=== PATIENT | female | born 1950 | race Caucasian/White ===

== ENCOUNTER → 2016-04-15 | Outpatient (CLI) | payer OTHER ==
[~2016-04-15] MED LIST: LIPITOR40 MG PO; LOPRESSOR50 MG PO; PROAMATINE 2.52.5 MG PO
== END ==
LOC: KOH-I 10:01
DX: G89.4 Chronic pain syndrome (principal); M54.41 Lumbago with sciatica, right side; M54.42 Lumbago with sciatica, left side; M51.37 Other intervertebral disc degeneration, lumbosacral region
CPT/HCPCS: 72131

== ENCOUNTER → 2016-07-01 | Outpatient (CLI) | payer OTHER | LOC: HEART 5 05-28 10:00 | DX: R01.1 Cardiac murmur, unspecified (principal); I31.3 Pericardial effusion (noninflammatory); I51.7 Cardiomegaly; I27.2 Other secondary pulmonary hypertension; I37.1 Nonrheumatic pulmonary valve insufficiency; I34.0 Nonrheumatic mitral (valve) insufficiency | CPT/HCPCS: 93306 ==